=== PATIENT | male | born 1975 | race Caucasian/White ===

== ENCOUNTER 2016-03-31 13:21 | Emergency (ER) | payer BC ==
[2016-03-31 13:39] VITALS: BP 127/89
--- NOTE | 2016-03-31 13:56 | UC ---
Throat Pain/Nasal [place]les HPI - HPI Summary HPI Summary: NASAL CONGESTION , COUGH, RUNNY NOSE X 3 DAYS NO FEVER, + CHILLS, BODY ACHES - History of Current Complaint Chief Complaint: UCGeneralIllness Stated Complaint: SORE THROAT,FEVER Time Seen by Provider: 03/31/16 13:30 Hx Obtained From: Patient Onset/Duration: Gradual Onset, Lasting Days - 3, Still Present Severity: Moderate Cough: Nonproductive Associated Signs & Symptoms: Positive: Nasal Discharge. Negative: Fever, Rash - Allergies/Home Medications Allergies/Adverse Reactions: Allergies Allergy/AdvReac Type Severity Reaction Status Date / Time Fish Allergy Allergy Unknown Verified 09/18/15 13:32 Reaction Details Aspirin AdvReac Mild GI Upset Verified 09/22/15 11:29 Home Medications: Home Medications Acetaminophen [Tylenol] 650 mg PO Q4HR PRN 03/31/16 [History Confirmed 03/31/16] Albuterol HFA INHALER* [Ventolin HFA Inhaler*] 2 puff INH Q4H PRN 03/31/16 [ History Confirmed 03/31/16] Muscle Relaxer 1 tab PO Q24HR PRN 03/31/16 [History] PMH/Surg Hx/FS Hx/Imm Hx Previously Healthy: Yes GI/ History Of: Reports: Kidney Stones - 18 YEARS AGO - Surgical History Surgical History: Yes Surgery Procedure, Year, and Place: Left kidney surgery age 54 years OLD. - Family History Known Family History: Negative: Diabetes - Social History Alcohol Use: Occasionally Substance Use Type: None, Marijuana, Prescribed, Other Substance Use Comment - Amount & Last Used: NO COCAINE OR HEROIN IN 4 YEARS- [place] LAST ABOUT 2 MONTHS AGO Smoking Status (MU): Heavy Every Day Tobacco Smoker Amount Used/How Often: 1 PPD X 20 YEARS OFF AND ON Have You Smoked in the Last Year: Yes - Immunization History Most Recent Tetanus Shot: not sure, maybe within Review of Systems Constitutional: Chills, Fatigue Skin: Negative Eyes: Negative ENT: Nasal Discharge Respiratory: Cough Cardiovascular: Negative Gastrointestinal: Negative Genitourinary: Negative All Other Systems Reviewed And Are Negative: Yes Physical Exam Triage Information Reviewed: Yes Appearance: Well-Appearing, No Pain Distress, Well-Nourished Vital Signs: Initial Vital Signs Temp 98.7 F 03/31/16 13:34 Pulse 74 03/31/16 13:34 Resp 16 03/31/16 13:34 BP 127/89 03/31/16 13:34 Pulse Ox 100 03/31/16 13:34 Eyes: Positive: Conjunctiva Clear ENT: Positive: Normal ENT inspection, Hearing grossly normal, Pharyngeal erythema, Nasal congestion, Nasal drainage, TMs normal Neck exam: Normal Neck: Positive: Supple, Nontender, No Lymphadenopathy Respiratory Exam: Normal Respiratory: Positive: Chest non-tender, Lungs clear, Normal breath sounds Cardiovascular Exam: Normal Cardiovascular: Positive: RRR, No Murmur, Pulses Normal Skin Exam: Normal Throat Pain/Nasal Course/Dx - Differential Dx/Diagnosis Provider Diagnoses: URI Discharge - Discharge Plan Condition: Stable Disposition: HOME Patient Education Materials: Upper Respiratory Infection (ED) Forms: *Work Release Referrals: Rubens Wise MD [Primary Care Provider] - If Needed
== END 2016-03-31 14:04 | disposition home or self-care (01) ==
LOC: UCCORT 13:21
DX: F17.210 Nicotine dependence, cigarettes, uncomplicated (principal)
CPT/HCPCS: 99211; G0463

== ENCOUNTER 2016-04-26 19:18 | Emergency (ER) | payer BC ==
[2016-04-26 20:02] VITALS: BP 154/95
[2016-04-26] MEDS ORDERED: Fluorescein Sodium TOPICAL* 1 MG TEST ONE (20:17)
[2016-04-26] MEDS ORDERED: Eye Irrigation Solution 30 ML BOTTLE ONE (20:17)
--- NOTE | 2016-04-26 20:23 | UC ---
Eye Complaint HPI - HPI Summary HPI Summary: 1) R eye irritation, drainage, redness since yesterday. No recent grinding, welding, or overhead work. Does not wear contacts. 2) Dry, itchy skin patch on R hand that will go away for a few days and flare up again for months. - History of Current Complaint Chief Complaint: UCEye Stated Complaint: LEFT EYE COMPLAINT Time Seen by Provider: 04/26/16 20:08 Hx Obtained From: Patient Onset/Duration: Gradual Onset, Lasting Days Timing: Constant Severity Initially: Mild Severity Currently: Mild Location of Injury: Conjunctiva Character: Dull Aggravating Factor(s): Nothing Associated Signs And Symptoms: Positive: Drainage (Purulent). Negative: Vision Impairment Bilateral - Allergies/Home Medications Allergies/Adverse Reactions: Allergies Allergy/AdvReac Type Severity Reaction Status Date / Time Fish Allergy Allergy Unknown Verified 04/26/16 20:02 Reaction Details Aspirin AdvReac Mild GI Upset Verified 04/26/16 20:02 PMH/Surg Hx/FS Hx/Imm Hx GI/ History Of: Reports: Kidney Stones - 18 YEARS AGO - Surgical History Surgical History: Yes Surgery Procedure, Year, and Place: Left kidney surgery age 54 years OLD. Right carpal tunnel surgery - Family History Known Family History: Negative: Diabetes - Social History Lives: With Family Alcohol Use: Occasionally Substance Use Type: None, Marijuana, Prescribed, Other Substance Use Comment - Amount & Last Used: NO COCAINE OR HEROIN IN 4 YEARS- [place] LAST ABOUT 2 MONTHS AGO Smoking Status (MU): Heavy Every Day Tobacco Smoker Amount Used/How Often: 1 PPD X 20 YEARS OFF AND ON Have You Smoked in the Last Year: Yes - Immunization History Most Recent Tetanus Shot: not sure, maybe within Review of Systems Constitutional: Negative Skin: Other - itchy dry patch Eyes: Drainage, Eye Redness ENT: Negative Respiratory: Negative Cardiovascular: Negative Gastrointestinal: Negative Genitourinary: Negative Motor: Negative Neurovascular: Negative Musculoskeletal: Negative Neurological: Negative Psychological: Negative All Other Systems Reviewed And Are Negative: Yes Physical Exam Triage Information Reviewed: Yes Appearance: Well-Appearing, No Pain Distress, Well-Nourished Vital Signs: Initial Vital Signs Temp 99.6 F 04/26/16 19:58 Pulse 101 04/26/16 19:58 Resp 16 04/26/16 19:58 BP 154/95 04/26/16 19:58 Pulse Ox 97 04/26/16 19:58 Vital Signs Reviewed: Yes Eye Exam: Other - PERRL Eyes: Positive: Conjunctiva Inflamed, Discharge, Other: - fluorescein negative for uptake ENT Exam: Normal ENT: Positive: Normal ENT inspection, Hearing grossly normal, Pharynx normal, TMs normal Dental Exam: Other - dentures Neck exam: Normal Respiratory Exam: Normal Respiratory: Positive: Chest non-tender, Lungs clear, Normal breath sounds, No respiratory distress, No accessory muscle use Cardiovascular: Positive: No Murmur, Tachycardia Musculoskeletal Exam: Normal Neurological Exam: Normal Psychological Exam: Normal Skin Exam: Other - dry excoriated area R hand Eye Complaint Course/Dx - Differential Dx/Diagnosis Provider Diagnoses: R eye conjunctivitis. R hand eczema Discharge - Discharge Plan Condition: Stable Disposition: HOME Prescriptions: Polymyx/Trimethoprim OPTH* [Polytrim OPHTH*] 1 drop RIGHT EYE QID #1 btl Triamcinolone 0.1% Oint (NF) [Triamcinolone Acetonide] 1 applic TOPICAL TID #15 gm Patient Education Materials: Conjunctivitis (ED), Eczema (ED) Referrals: Rubens Wise MD [Primary Care Provider] -
== END 2016-04-26 20:30 | disposition home or self-care (01) ==
LOC: UCCORT 19:18
DX: H10.9 Unspecified conjunctivitis (principal); L30.9 Dermatitis, unspecified; F12.90 Cannabis use, unspecified, uncomplicated; F17.210 Nicotine dependence, cigarettes, uncomplicated; Z88.6 Allergy status to analgesic agent
CPT/HCPCS: 99212; A9270-GY; G0463

== ENCOUNTER 2018-02-06 08:30 | Day surgery (SDC) | payer BC ==
--- NOTE | 2018-01-24 10:48 | HP ---
AMENDED REPORT NOW INCLUDES DESIGNATED COSIGNER PREOPERATIVE HISTORY AND PHYSICAL EXAM: DATE OF SURGERY/ADMISSION: 02/06/18 DATE OF OFFICE VISIT/ENCOUNTER: 01/10/18 ATTENDING SURGEON: Karely Alcala MD.* (DICTATED BY MELA SERVIN) PROCEDURE: Left wrist carpal tunnel release CHIEF COMPLAINT: Numbness and tingling, left hand. HISTORY OF PRESENT ILLNESS: This is a 42-year-old male who complains of numbness, tingling and pain in his left hand. This has been ongoing for several years. He has consistent symptoms at night that are his chief complaint and the symptoms awaken him on a regular basis. He also has symptoms during the day particularly when he is at work. He has failed conservative treatment including cortisone injections and bracing. A couple of years ago, he underwent a right wrist carpal tunnel release and did very well with that. He is now interested in pursuing a left wrist carpal tunnel release. PAST MEDICAL HISTORY: 1. Chronic back pain/sciatic nerve pain. 2. History of kidney stones. 3. History of crack cocaine and marijuana abuse. PAST SURGICAL HISTORY: 1. Surgery for kidney infection as a child. 2. Right carpal tunnel release. CURRENT MEDICATIONS: None. ALLERGIES: ASPIRIN causes stomach upset. FAMILY HISTORY: Noncontributory. SOCIAL HISTORY: The patient is employed at [employer], a [employer], which [employer]. He is a smoker, he smokes about a pack per day and he has done so for over 30 years. He denies any current recreational drug use and he does not drink alcohol. He has been sober for 1-1/2 years. REVIEW OF SYSTEMS: Negative for general, cephalic, cardiovascular, respiratory , GI, , other musculoskeletal, integumentary, endocrine, neurologic, and hematologic symptoms. Infectious Disease: Negative for history of MRSA, hepatitis C, HIV. PHYSICAL EXAMINATION GENERAL: Well-developed, well-nourished 42-year-old male, in no acute distress. VITAL SIGNS: Height 5 feet 10 inches, weight 172 pounds. Pulse rate 71, blood pressure 138/87. HEENT: Normocephalic, atraumatic. Pupils are equal, round and reactive to light and accommodation. Extraocular movements are intact. Throat is clear. NECK: Supple. No palpable lymph nodes. PULMONARY: Lungs are clear to auscultation bilaterally. No wheezes, rales, or rhonchi. CARDIOTHORACIC: Regular rate and rhythm. S1, S2. No murmurs, rubs, or gallops. No edema. ABDOMEN: Positive bowel sounds. Soft, nontender. NEUROLOGICAL: Alert and oriented x3. Cranial nerves II through XII are intact. MUSCULOSKELETAL: On exam of his left hand, there is no noted thenar wasting, but he has weakness with thumb abduction. He has full range of motion of his wrist and fingers. He has a positive Tinel's sign at the wrist and a positive Phalen's test. Sensation is intact to light touch throughout his hands. IMPRESSION: Left carpal tunnel syndrome. PLAN: The patient is scheduled to undergo left wrist carpal tunnel release with Dr. Alcala on 02/06/18. He will return to the office 10 days postop for followup and suture removal. A prescription for oxycodone was e-scribed to the patient's pharmacy for postoperative pain management. MELA SERVIN [id number]/[facility] #: [id number] GISELA
[~2018-02-06 08:30] MED LIST: Buffered Lidocaine 0.9% SYRIN* 5 ML/SYR SYRINGE INTRADERM ONE; Dexamethasone IV* 4 MG/ML 1 ML (4 MG) IV SLOW PU ONE; Dexamethasone IV* 4 MG/ML 1 ML (4 MG) ONE; Famotidine IV* 10 MG/ML 2 ML (20 mg) IV ONE; Famotidine IV* 10 MG/ML 2 ML (20 mg) ONE
[2018-02-06] MEDS ORDERED: Lidocaine 1% INJ* 10 MG/ML 30 ML SDV ONE (08:35)
[2018-02-06] MEDS ORDERED: Propofol* 10 MG/ML 20 ML BTL ONE (10:50)
[2018-02-06] MEDS ORDERED: Lidocaine 2% PF * 5 ML VIAL ONE (10:50)
[2018-02-06] MEDS ORDERED: Midazolam* 1 MG/ML 2 ML VIAL (2 MG) ONE (10:50)
[2018-02-06] MEDS ORDERED: fentaNYL* 50 MCG/ML 2 ML VIAL (100 MCG VIAL) ONE (10:50)
[2018-02-06] MEDS ORDERED: HYDROcodone/ACETAMIN 5-325 MG* 1 TAB PO PRN (11:01)
[2018-02-06] MEDS ORDERED: fentaNYL* 50 MCG/ML 2 ML VIAL (100 MCG VIAL) IV PRN (11:01)
[2018-02-06] MEDS ORDERED: Ondansetron INJ* 2 MG/ML VIAL IV PRN (11:01)
[2018-02-06] MEDS ORDERED: Naloxone* 0.4 MG/ML 1 ML VIAL IV PRN (11:01)
[2018-02-06] MEDS ORDERED: oxyCODONE/Acetamin 5/325 MG* TAB PO PRN (11:01)
[2018-02-06 11:37] VITALS: BP 115/79
--- NOTE | 2018-02-07 05:41 | OP ---
DATE OF OPERATION: 02/06/18 [facility] DATE OF : 73 SURGEON: Karely Alcala MD POULTRY FARMER: MELA Horton ANESTHESIA: Local MAC. PRE-OP DIAGNOSIS: Left carpal tunnel syndrome. POST-OP DIAGNOSIS: Left carpal tunnel syndrome. OPERATIVE PROCEDURE: Left carpal tunnel release. ESTIMATED BLOOD LOSS: Zero. TOURNIQUET TIME: Approximately 10 minutes. INDICATION FOR PROCEDURE: Johann is a 42-year-old male with numbness and tingling in the median nerve distribution of his left hand. He presents for left carpal tunnel release. DESCRIPTION OF PROCEDURE: The patient was brought to the operating room and was given a sedation anesthetic and a local infiltration of 10 cc of 1% plain lidocaine in the palm of his left hand. The skin of his left hand and forearm was prepped and draped in the usual sterile fashion. The hand and forearm were exsanguinated and the tourniquet elevated to 250 mmHg. A longitudinal incision was made in the palm in line with the ring finger. We dissected sharply through the subcutaneous tissue down to the transverse carpal ligament. There was a branch of nerve traversing the ligament, this was carefully worked around and left intact. The ligament was incised with the knife and then released more proximally with the scissors. The nerve was dissected free from the surrounding tissue and there was an area of moderate compression at the mid portion of the ligament. The wound was irrigated and skin edges were reapproximated with 4-0 nylon suture. The wound was dressed with Xeroform, 4x4 , Webril, and an Efrain wrap. The patient tolerated the procedure well and was brought to the recovery room in good condition. [id number]/[facility] #: [id number] [facility]
== END 2018-02-06 11:52 | disposition home or self-care (01) ==
LOC: OREAST 08:30
PROVIDERS: ATTEND Orthopaedic Surgery
DX: G56.02 Carpal tunnel syndrome, left upper limb (principal); Z72.0 Tobacco use
CPT/HCPCS: J1100; J2250; J2704; J3010